=== PATIENT | female | born 1985 | race Caucasian/White ===

== ENCOUNTER 2017-06-09 09:10 | Emergency (ER) | payer BC, MEDICAID ==
[2017-06-09] MEDS ORDERED: Ondansetron INJ* 2 MG/ML VIAL IV ONE ×2 (09:59→15:38)
[2017-06-09] MEDS ORDERED: Morphine INJ* 4 MG/ML 1 ML CARPUJECT IV ONE ×2 (09:59→12:38)
[2017-06-09 10:38] LABS: ABS Basophils 0.1 10^3/ul (0-0.2); ABS Eosinophils 0.2 10^3/ul (0-0.6); ABS Lymphocytes 2.5 10^3/ul (1.0-4.8); ABS Monocytes 0.5 10^3/ul (0-0.8); ABS Neutrophils 4.4 10^3/ul (1.5-7.7); ABS Nucleated RBC 0 10^3/ul; Eosinophil % 2.1 % (0-6); Hematocrit 41 % (35-47); Lymphocyte % 33.2 % (25-47); Mean Corpuscular HGB Conc 34 g/dl (31-36); Mean Corpuscular Hemoglobin 31 pg (27-31); Mean Corpuscular Volume 92 fL (80-97); Mean Platelet Volume 8 um3 (7.4-10.4); Nucleated Red Blood Cells % 0.1; Platelet Count 292 10^3/ul (150-450); Red Blood Count 4.45 10^6/ul (4.0-5.4); Red Cell Distribution Width 14 % (10.5-15); White Blood Count 7.6 10^3/ul (3.5-10.8)
[2017-06-09 10:40] LABS: Urine Appearance Cloudy; Urine Blood Negative (Negative); Urine Color Yellow; Urine Ketones Negative (Negative); Urine Protein Negative (Negative); Urine Specific Gravity 1.016 (1.010-1.030); Urine Urobilinogen Negative (Negative)
[2017-06-09 11:00] LABS: EGFR Non-African American 76.6 (>60)
--- NOTE | 2017-06-09 11:50 | RAD ---
Indication: Left lower quadrant pain. Real-time sonography of the pelvis was performed. The uterus measures 8.7 x 4.7 x 5.8 cm. Endometrial echo measures 7 mm. Prominent periuterine vessels are noted. The right ovary measures 2.0 x 0.9 x 2.0 cm. Left ovary measures 2.8 x 1.9 x 2.4 cm. Doppler interrogation demonstrates flow in both ovaries. IMPRESSION: No adnexal masses are noted. Prominent periuterine vessels are noted.
--- NOTE | 2017-06-09 13:16 | ED ---
Abdominal Pain/Female - HPI Summary HPI Summary: (2 living) pt here w/ LLQ pain which started abruptly last night. Pain / . Has not had anything to eat or drink since although denies N/V/D. Had a constipated BM yesterday - no hematochezia to report. 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 Also reports h/o ovarian cysts over the years - most recently Rt ovarian cyst surgically reduced while having tubal ligation in March - umbilicus got infected after however improved quickly with anbx and no residual issues. Denies vaginal pain/irritation/ discharge. She lives with boyfriend and children. w/ vaginal deliveries and no complications - lost one of her children after a few months d/ t congenital pathology. Denies urinary sx. - History of Current Complaint Chief Complaint: EDAbdPain Stated Complaint: LT FLANK PAIN-SENT FROM [facility] Time Seen by Provider: 06/09/17 09:41 Hx Obtained From: Patient, Family/Business Ethics Professor - father Pain Intensity: 6 Allergies/Adverse Reactions: Allergies Allergy/AdvReac Type Severity Reaction Status Date / Time Amoxicillin Allergy Rash Verified 06/09/17 09:16 Erythromycin Allergy Unknown Verified 06/09/17 09:16 Reaction Details PMH/Surg Hx/FS Hx/Imm Hx Previously Healthy: Yes Endocrine/Hematology History: Denies: Hx Anticoagulant Therapy, Hx Blood Disorders, Hx Diabetes, Hx Systemic Lupus Erythematosus, Hx Thyroid Disease, Hx Anemia, Autoimmune Disease Cardiovascular History: Denies: Hx Aneurysm GI History: Denies: Hx Cirrhosis, Hx Crohn's Disease, Hx Diverticulosis, Hx Gall Bladder Disease, Hx Gastroesophageal Reflux Disease, Hx Gastrointestinal Bleed, Hx Hiatal Hernia, Hx Irritable Bowel, Hx Obstructive Bowel, Hx Ulcer History: Denies: Hx Kidney Infection, Hx Kidney Stones Sensory History: Reports: Hx Contacts or Glasses Opthamlomology History: Reports: Hx Contacts or Glasses Neurological History: Reports: Other Neuro Impairments/Disorders - RLS - takes requip and gabapentin Psychiatric History: Reports: Hx Post Traumatic Stress Disorder - w/ insomnia - takes ambien Infectious Disease History: No Infectious Disease History: Denies: Traveled Outside the [place] in Last 30 Days - Family History Known Family History: Positive: Other - father - kidney stone - Social History Occupation: Employed Full-time Lives: With Family Alcohol Use: Occasionally Hx Substance Use: No Substance Use Type: Reports: None Hx Tobacco Use: Yes - not currently Smoking Status (MU): Former Smoker Review of Systems Constitutional: Negative Negative: Fever, Chills, Fatigue ENT: Negative Cardiovascular: Negative Negative: Chest Pain Respiratory: Negative Negative: Shortness Of Breath, Cough Positive: Abdominal Pain. Negative: Vomiting, Diarrhea, Nausea Genitourinary: Negative Negative: burning, dysuria, discharge, frequency, flank pain, hematuria, incontinence, pain, urgency Musculoskeletal: Negative Skin: Negative Neurological: Negative Psychological: Normal All Other Systems Reviewed And Are Negative: Yes Physical Exam Triage Information Reviewed: Yes Vital Signs On Initial Exam: Initial Vitals Temp Pulse Resp BP Pulse Ox 97.5 F 61 18 130/63 100 06/09/17 09:13 06/09/17 09:13 06/09/17 09:13 06/09/17 09:13 06/09/17 09:13 Vital Signs Reviewed: Yes Appearance: Positive: Well-Appearing, Well-Nourished, Pain Distress - moderate distress - holding LLQ and leaning forward while seated on stretcher Skin: Positive: Warm, Skin Color Reflects Adequate Perfusion, Dry Head/Face: Positive: Normal Head/Face Inspection Eyes: Positive: Normal, EOMI, Conjunctiva Clear - anicteric sclera ENT: Positive: Normal ENT inspection, Hearing grossly normal, Pharynx normal - mucosa moist Neck: Positive: Supple - no gross thyromegaly Respiratory/Lung Sounds: Positive: Clear to Auscultation, Breath Sounds Present. Negative: Rales, Rhonchi, Wheezes Cardiovascular: Positive: Normal, RRR, Pulses are Symmetrical in both Upper and Lower Extremities, S1, S2 Abdomen Description: Positive: No Organomegaly, Soft, Other: - LLQ TTP - no rebounding. Negative: CVA Tenderness (R), CVA Tenderness (L), Distended, Guarding, Hernia @ Bowel Sounds: Positive: Present Pelvic Exam: Positive: external exam normal, speculum exam normal, bimanual exam normal, no cerv. motion tender, no masses. Negative: tender adnexa, tender uterus Musculoskeletal: Positive: Normal, Strength/ROM Intact Neurological: Positive: Normal, Sensory/Motor Intact, Alert, Oriented to Person Place, Time, CN Intact II-III Psychiatric: Positive: Normal - concerned but calm and cooperative - Shiv Coma Scale Coma Scale Total: 15 Diagnostics - Vital Signs Vital Signs Temp Pulse Resp BP Pulse Ox 06/09/17 12:46 15 06/09/17 12:30 62 109/72 100 06/09/17 12:00 58 112/79 100 06/09/17 11:32 62 118/70 96 06/09/17 11:00 56 100 06/09/17 10:27 15 06/09/17 10:00 59 119/85 99 06/09/17 09:43 86 97 06/09/17 09:42 126/84 06/09/17 09:13 97.5 F 61 18 130/63 100 - Laboratory Lab Results: Lab Results 06/09/17 06/09/17 06/09/17 Range/Units 10:15 10:15 10:15 WBC 7.6 (3.5-10.8) 10^3/ul RBC 4.45 (4.0-5.4) 10^6/ul Hgb 14.0 (12.0-16.0) g/dl Hct 41 (35-47) % MCV 92 (80-97) fL MCH 31 (27-31) pg MCHC 34 (31-36) g/dl RDW 14 (10.5-15) % Plt Count 292 (150-450) 10^3/ul MPV 8 (7.4-10.4) um3 Neut % (Auto) 57.3 (38-83) % Lymph % (Auto) 33.2 (25-47) % Garfield % (Auto) 6.4 (1-9) % Eos % (Auto) 2.1 (0-6) % Baso % (Auto) 1.0 (0-2) % Absolute Neuts (auto) 4.4 (1.5-7.7) 10^3/ul Absolute Lymphs (auto) 2.5 (1.0-4.8) 10^3/ul Absolute Monos (auto) 0.5 (0-0.8) 10^3/ul Absolute Eos (auto) 0.2 (0-0.6) 10^3/ul Absolute Basos (auto) 0.1 (0-0.2) 10^3/ul Absolute Nucleated RBC 0 10^3/ul Nucleated RBC % 0.1 Sodium 136 (133-145) mmol/L Potassium 4.4 (3.5-5.0) mmol/L Chloride 106 (101-111) mmol/L Carbon Dioxide 23 (22-32) mmol/L Anion Gap 7 (2-11) mmol/L BUN 12 (6-24) mg/dL Creatinine 0.85 (0.51-0.95) mg/dL Est GFR ( Amer) 98.5 (>60) Est GFR (Non-Af Amer) 76.6 (>60) BUN/Creatinine Ratio 14.1 (8-20) Glucose 93 (70-100) mg/dL Lactic Acid (0.5-2.0) mmol/L Calcium 9.5 (8.6-10.3) mg/dL Magnesium 2.0 (1.9-2.7) mg/dL Total Bilirubin 0.50 (0.2-1.0) mg/dL AST 15 (13-39) U/L ALT 11 (7-52) U/L Alkaline Phosphatase 51 (34-104) U/L C-Reactive Protein < 1.00 (< 5.00) mg/L Total Protein 7.2 (6.4-8.9) g/dL Albumin 4.2 (3.2-5.2) g/dL Globulin 3.0 (2-4) g/dL Albumin/Globulin Ratio 1.4 (1-3) Lipase 11 (11.0-82.0) U/L Beta HCG, Quant < 0.60 mIU/mL Urine Color Yellow Urine Appearance Cloudy Urine pH 7.0 (5-9) Ur Specific [place] 1.016 (1.010-1.030) Urine Protein Negative (Negative) Urine Ketones Negative (Negative) Urine Blood Negative (Negative) Urine Nitrate Negative (Negative) Urine Bilirubin Negative (Negative) Urine Urobilinogen Negative (Negative) Ur Leukocyte Esterase Negative (Negative) Urine Glucose Negative (Negative) 06/09/17 Range/Units 10:38 WBC (3.5-10.8) 10^3/ul RBC (4.0-5.4) 10^6/ul Hgb (12.0-16.0) g/dl Hct (35-47) % MCV (80-97) fL MCH (27-31) pg MCHC (31-36) g/dl RDW (10.5-15) % Plt Count (150-450) 10^3/ul MPV (7.4-10.4) um3 Neut % (Auto) (38-83) % Lymph % (Auto) (25-47) % Garfield % (Auto) (1-9) % Eos % (Auto) (0-6) % Baso % (Auto) (0-2) % Absolute Neuts (auto) (1.5-7.7) 10^3/ul Absolute Lymphs (auto) (1.0-4.8) 10^3/ul Absolute Monos (auto) (0-0.8) 10^3/ul Absolute Eos (auto) (0-0.6) 10^3/ul Absolute Basos (auto) (0-0.2) 10^3/ul Absolute Nucleated RBC 10^3/ul Nucleated RBC % Sodium (133-145) mmol/L Potassium (3.5-5.0) mmol/L Chloride (101-111) mmol/L Carbon Dioxide (22-32) mmol/L Anion Gap (2-11) mmol/L BUN (6-24) mg/dL Creatinine (0.51-0.95) mg/dL Est GFR ( Amer) (>60) Est GFR (Non-Af Amer) (>60) BUN/Creatinine Ratio (8-20) Glucose (70-100) mg/dL Lactic Acid 0.5 (0.5-2.0) mmol/L Calcium (8.6-10.3) mg/dL Magnesium (1.9-2.7) mg/dL Total Bilirubin (0.2-1.0) mg/dL AST (13-39) U/L ALT (7-52) U/L Alkaline Phosphatase (34-104) U/L C-Reactive Protein (< 5.00) mg/L Total Protein (6.4-8.9) g/dL Albumin (3.2-5.2) g/dL Globulin (2-4) g/dL Albumin/Globulin Ratio (1-3) Lipase (11.0-82.0) U/L Beta HCG, Quant mIU/mL Urine Color Urine Appearance Urine pH (5-9) Ur Specific [place] (1.010-1.030) Urine Protein (Negative) Urine Ketones (Negative) Urine Blood (Negative) Urine Nitrate (Negative) Urine Bilirubin (Negative) Urine Urobilinogen (Negative) Ur Leukocyte Esterase (Negative) Urine Glucose (Negative) Result Diagrams: 06/09/17 10:15 06/09/17 10:15 Lab Statement: Any lab studies that have been ordered have been reviewed, and results considered in the medical decision making process. Re-Evaluation - Re-Evaluation First Eval Change: Improved - pain improved s/p morphine but then started to return after 3.5 hours; more ordered Abdominal Pain Fem Course/Dx - Course Course Of Treatment: Pt presents w/ abrupt onset LLQ pain last night which is persisting into today. Denies vaginal or urinary sx however w/ h/o ovarian cysts , TVUS was ordered to assess for cyst, torsion, etc. This and labs were normal and pain initially controlled however pain started to return upon completion of TVUS report and so more morphine was ordered along w/ CT ab/pelvis to assess for diverticulitis w/ h/o constipation. Pt and father agree w/ plan. Signed out to Katarina Haley PA-C pending CT results. If normal and stool is present in bowels, this could be bowel irritation from retained stool as pt reports h/o "colick" as child w/ sx as an adult from time to time as well. - Diagnoses Provider Diagnoses: LLQ abdominal pain Discharge - Discharge Plan Condition: Stable Disposition: OTHER Discharge Disposition Comment: signed out Referrals: Austyn Raya MD [Primary Care Provider] -
[2017-06-09] MEDS ORDERED: Iohexol 300* (CONTRAST) 10 ML SDV IV ONE (15:14)
--- NOTE | 2017-06-09 16:59 | RAD ---
CLINICAL HISTORY: Left lower quadrant pain and constipation. Relevant surgical history includes appendectomy. COMPARISON: Same day pelvic ultrasound that demonstrates enlarged periuterine veins up to 7 mm in diameter. TECHNIQUE: Contrast enhanced CT examination of the abdomen and pelvis from the lung bases through the initial tuberosities. The patient received 89 mL Omnipaque 300 intravenously prior to imaging.The patient received oral contrast as well prior to imaging. FINDINGS: VISUALIZED LUNG BASES: The visualized lung bases are grossly clear. There is no pleural effusion. ABDOMEN AND PELVIS: The liver, spleen, pancreas and adrenal glands are grossly normal in appearance. The gallbladder is normal. The kidneys are normal in appearance without focal mass, calcification or signs of hydronephrosis. There are contrast has progressed as far as the base of the cecum which somewhat limits evaluation of the colon. The small and large bowel are not distended. Consistent with the patient's surgical history, the appendix is not discretely visualized. The gas and stool-filled colon is not pathologically dilated or exhibit any acute abnormality. Incidental note is made of a focus of gas filling the rectum measuring 4.2 cm in diameter. There is no gross retroperitoneal or mesenteric lymphadenopathy. The left ovarian vein is mildly enlarged measuring 7 mm in diameter. Corresponding to recent pelvic imaging, there are left periuterine veins measuring up to 7 mm in diameter. The right ovarian vein is not pathologically dilated. Otherwise the pelvic viscera is normal in appearance. The abdominal aorta and iliac arteries are normal in course and diameter. There is a 1 cm bone island at the left sacrum. The visualized bones are otherwise normal in appearance. IMPRESSION: 1. Aside from a moderate amount of gas noted in the rectum there are no acute gastrointestinal abnormalities. 2. As was seen on the same day pelvic ultrasound, there are enlarged periuterine veins in the left hemipelvis measuring up to 7 mm in diameter. This appearance could be seen in the setting of pelvic congestion syndrome (AKA pelvic venous hypertension) which presents clinically as intermittent, gravity dependent abdominal pelvic pain, lower extremity and pelvic varicosities, vague GI symptoms and/or dyspareunia.
[2017-06-09 17:13] VITALS: BP 104/70
--- NOTE | 2017-06-09 17:53 | PN ---
Progress Note - Progress Note Date of Service: 06/09/17 SOAP: Subjective: Patient was a sign out from Paola CASTILLO at shift change pending CT results. Patient was comfortable during stay, given zofran from nausea from drinking contrast. Objective: CTA, RRR and LLQ tenderness on exam Assessment: CT obtained and negative for acute findings. But did show 1. Aside from a moderate amount of gas noted in the rectum there are no acute gastrointestinal abnormalities. 2. As was seen on the same day pelvic ultrasound, there are enlarged periuterine veins in the left hemipelvis measuring up to 7 mm in diameter. This appearance could be seen in the setting of pelvic congestion syndrome (AKA pelvic venous hypertension) which presents clinically as intermittent, gravity dependent abdominal pelvic pain, lower extremity and pelvic varicosities, vague GI symptoms and/or dyspareunia. normal labs and urinalysis without any abnormal findings Plan: Patient was educated to follow up with OBGYN and referred to Dr Cid if these symptoms persist or become problematic as it may be part of pelvic congestion syndrome. patient educated and agrees and understands plan. Diagnosis: LLQ abdominal pain, pelvic congestion syndrome Discharge condition: stable Discharge to: home. Plan:Take ibuprofen to help with pain and inflammation. Increase fluid intake. Only take prescribed medication as needed to help with break through pain. Apply heating pad. Recommend continuing laxative and gas-x to eliminate gas build up and constipation. Follow up with OBGYN/Dr Cid to discuss pelvic congestion syndrome and PCP to discuss ED visit. Any new or worsening symptoms please seek medical attention promptly and return as discussed.
--- NOTE | 2017-06-11 09:11 | PN ---
Progress Note - Progress Note Date of Service: 06/09/17 Note: patient diagnosed with abdominal pain and pelvic congestion syndrome. vaginal culture results show negative garnerella and positive maritza, although she is asymptomatic. spoke with patient on phone at 9:15am. diflucan sent to pharmacy. no further action required at this time. patient's symptoms and abdominal pain from visit has since resolved and she is feeling much better.
== END 2017-06-09 17:34 | disposition home or self-care (01) ==
LOC: ED 09:10
DX: R10.32 Left lower quadrant pain (principal); Z88.3 Allergy status to other anti-infective agents; Z87.891 Personal history of nicotine dependence
CPT/HCPCS: 36415; 74177; 76830; 80053; 81003; 83605; 83690; 83735; 84702; 85025; 86140; 87480; 87491; 87510; 87591; 87661; 96374; 96375; 96376; 99284; J2270; J2405; Q9967